=== PATIENT | male | born 1960 | race Caucasian/White ===

== ENCOUNTER 2018-04-09 11:14 | Inpatient (IN) ==
--- NOTE | 2018-04-09 11:20 | Emergency Department Note ---
Disposition Clinical Impression: Adverse reaction to drug, Agitation Disposition: Admitted As Inpatient Condition: Fair General Adult HPI - General Stated complaint: "reaction to medication?" Time Seen by Provider: 04/09/18 11:19 Nursing Notes Reviewed: Yes Vital Signs Reviewed: Yes - History of Present Illness HPI Narrative: 57-year-old male presents from work for evaluation of multiple symptoms. He was fine this morning. When he got to work, he took a single dose of his ' s prescription medication 'to help with weight loss'. He has never taken this previously and took qty one tablet this morning. 15 minutes later, he began experiencing the following symptoms:tinnitis, pruritis, restlessness, nausea, vomiting, loose stools. Patient has also been taking tramadol for years. PMH: HTN, HLD, chronic pain. Patient lives at home with his granddaughter. His was killed approximately 1 year ago; he describes her being hit on the side of the [place] by a semitruck. ROS: Pos: as above Neg: fever, chills, chest pain, dyspnea, abdominal pain, trauma, exposure to chemicals at work. No visual changes, difficulty swallowing. - Related Data Home Medications Medication Instructions Recorded Confirmed Atorvastatin Calcium [Lipitor] 20 mg PO DAILY 04/09/18 04/09/18 Lisinopril-HCTZ 10-12.5 [Prinzide 1 tab PO DAILY 04/09/18 04/09/18 10-12.5] Tramadol HCl [Ultram] 50 mg PO QID PRN 04/09/18 04/09/18 Previous Rx's Medication Instructions Recorded amLODIPine [Norvasc] 5 mg PO DAILY #30 tablet 04/12/18 Allergies Allergy/AdvReac Type Severity Reaction Status Date / Time bupropion [From Contrave] AdvReac See Verified 04/09/18 12:11 Comments naltrexone [From Contrave] AdvReac See Verified 04/09/18 12:11 Comments Physical Exam Vital Signs Reviewed General: Patient is alert, oriented. He is unable to stay still. He appears in distress. Head: atraumatic, normocephalic Eye: normal appearance, PERRL, EOMI, no scleral icterus, no conjunctival injection ENT: mucous membranes moist, normal external ear exam Neck: normal inspection, trachea midline, full ROM Chest: normal inspection, symmetric chest rise Respiratory: Good respiratory effort. Bilateral breath sounds are clear without wheezing, crackles, or rhonchi. Cardiovascular: Regular rate and rhythm. No clicks, rubs, gallops, or murmors. Normal heart sounds. Abdomen: Bowel sounds present normoactive x-4 quadrants. Abdomen is soft, nondistended, and nontender. No guarding or rebound. Musculoskeletal: Spontaneously moving all extremities. Skin: warm, dry, intact. No rash. Neuro: Alert and oriented x4. No gait ataxia. Psych: Patient's affect is appropriate for situation. Course Course Narrative: On intake vitals, patient is tachycardic and hypertensive. Patient brings a single pill of what he took: circular, purple, marked with [id number]. Pill lookup shows this to be Contrave; combination buprionone and naloxone. His symptoms appear to be cardiovascular, GI, neurologic, and psychiatric adverse reaction to this medication. There could also be a component of withdrawl from tramadol secondary to the component naloxone. Half life of buprion approximately 21 hours. Patient denies any illicit substances including bath salts. Will watch for QT prolongation, clinical psychiatric status, baseline labs including hepatic, renal, and troponin. Discussed the patient with poison control. Discussed his clinical picture and management thus far. No further recommendations. Symptomatic management at this time. Patient has required doses of penergran, ativan, halodol, geodon. He remained unable to control himself. He continued to hallucinate and would intermittently appear lucid and able to hold an appropriate conversation with insight. He self-discontinued two IVs. Unable to be still for CT scan. He was given 4mg/kg IM Ketamine and imaging was completed. Serotonin syndrome unlikely as patient has no ocular gyrus and no clonus. Neuroleptic malignant syndrome unlikely as patient is afebrile on arrival and reports no exposure to medications known for NMS. Encephalopathy unlikely as patient is lucid with short intervals of agitation and hallucinations. After 4 hours of intermittent thrashing and fighting, patient has a rectal temperature 100.6. Still low suspicion for neuroleptic malignant syndrome. He does have elevated lactic acid however, this is most likely from his thrashing. Patient admitted to the hospital for continued evaluation and monitoring. Discussed with the admitting hospitalist the patient's presentation, clinical course, and response to medication. We discussed precedex as a potential gtt medication to symptomatically manage the patient. EKG dated 04/09/18 at 14:09 interpreted as sinus tachycardia with a rate of 135. PA 134. QTC 551. Normal axis. Nonspecific ST-T changes. Previous EKG for comparison. Vital Signs Temperature 97.8 F 04/09/18 11:17 Pulse Rate 116 04/09/18 11:17 Respiratory Rate 18 04/09/18 11:17 Blood Pressure 213/154 04/09/18 11:17 O2 Sat by Pulse Oximetry 98 04/09/18 11:17 Temperature 98.5 F 04/12/18 07:57 Pulse Rate 89 04/12/18 07:57 Respiratory Rate 18 04/12/18 07:57 Blood Pressure 164/84 04/12/18 07:57 O2 Sat by Pulse Oximetry 97 04/12/18 07:57 Oxygen Delivery Oxygen Delivery Room Air Medical Decision Making - Lab Data Result diagrams: 04/12/18 05:42 04/12/18 05:42 Lab Results 04/09/18 04/09/18 04/09/18 Range/Units 12:01 12:01 12:01 WBC 10.0 (4.3-11.1) K/mcL RBC 4.97 (4.19-5.50) M/mcL Hgb 14.0 (12.9-16.9) g/dL Hct 42.3 (37.5-50.1) % MCV 85.1 (83.0-100.0) fL MCH 28.2 (28.0-33.3) pg MCHC 33.1 (31.6-35.5) g/dL RDW 12.2 (11.5-14.5) % Plt Count 327 (140-400) K/mcL MPV 9.4 (9.4-12.4) fL Immature Gran % 0.5 (0-4) % Seg Neutrophils % 61.2 % Lymphocytes % 27.6 % Monocytes % 7.9 % Eosinophils % 2.2 % Basophils % 0.6 % Neutrophils # 6.1 (1.6-8.9) K/mcL Lymphocytes # 2.8 (0.6-4.6) K/mcL Monocytes # 0.8 (0.0-1.3) K/mcL Eosinophils # 0.2 (0.0-0.6) K/mcL Basophils # 0.1 (0.0-0.2) K/mcL VBG pH (7.32-7.42) pH Units VBG pCO2 (41-51) mmHg VBG pO2 (25-50) mmHg VBG HCO3 (21-27) mEq/L Carboxyhemoglobin (0-5) % Sodium 138 (136-145) mEq/L Potassium 3.6 (3.5-5.1) mEq/L Chloride 100 (98-107) mEq/L Carbon Dioxide 25 (23-29) mEq/L BUN 15 (6-20) mg/dL Creatinine 1.08 (0.70-1.30) mg/dL Est GFR ( Amer) > 60 (> 60) Est GFR (Non-Af Amer) > 60 (> 60) BUN/Creatinine Ratio 14 (6-26) Glucose 93 (70-105) mg/dL Calculated Osmolality 287 (280-300) Lactic Acid (0.5-2.2) mmol/L Calcium 9.5 (8.6-10.3) mg/dL Total Bilirubin 0.6 (0.3-1.0) mg/dL Direct Bilirubin 0.2 (0.0-0.2) mg/dL Indirect Bilirubin 0.4 (0.0-1.2) mg/dL AST 16 (13-39) Units/L ALT 15 (7-52) Units/L Alkaline Phosphatase 140 H (34-104) Units/L Ammonia (16-53) mcmol/L Creatine Kinase 60 (30-223) Units/L Troponin I < 0.03 (< 0.04) ng/mL Serum Total Protein 7.3 (6.4-8.9) g/dL Albumin 4.2 (3.5-5.7) g/dL Globulin 3.1 (2.4-3.5) g/dL Albumin/Globulin Ratio 1.4 (1.1-2.2) TSH (0.340-5.600) mcIU/mL Urine Color (Yellow) Urine Clarity (Clear) Urine pH (5.0-8.0) pH Units Ur Specific [place] (1.010-1.025) Urine Protein (Neg-Trace) mg/dL Urine Glucose (UA) (Normal) mg/dL Urine Ketones (Negative) mg/dL Urine Blood (Negative) Urine Nitrite (Negative) Urine Bilirubin (Negative) Urine Urobilinogen (Normal) mg/dL Ur Leukocyte Esterase (Negative) Urine Microscopic RBC (0-3) per hpf Urine Microscopic WBC (0-3) per hpf Ur Squamous Epith Cells (None-Few) per lpf Urine Bacteria (None-Few) per hpf Hyaline Casts (None-Few) per lpf Salicylates < 2.5 L (15.0-30.0) mg/dL Urine Opiates Screen (Fdahqx=662) ng/mL Acetaminophen < 10 L (10-20) mcg/mL Ur Barbiturates Screen (Ojxikj=915) ng/mL Ur Phencyclidine Scrn (Cutoff=25) ng/mL Ur Amphetamines Screen (Lwkddt=9882) ng/mL U Benzodiazepines Scrn (Rjywfi=471) ng/mL Urine Cocaine Screen (Cutoff= 300) ng/mL U Marijuana (THC) Screen (Cutoff = 50) ng/mL Ur Drug Screen Interp Ethyl Alcohol < 10 (Less than 10) mg/dL 04/09/18 04/09/18 04/09/18 Range/Units 12:13 12:13 14:08 WBC (4.3-11.1) K/mcL RBC (4.19-5.50) M/mcL Hgb (12.9-16.9) g/dL Hct (37.5-50.1) % MCV (83.0-100.0) fL MCH (28.0-33.3) pg MCHC (31.6-35.5) g/dL RDW (11.5-14.5) % Plt Count (140-400) K/mcL MPV (9.4-12.4) fL Immature Gran % (0-4) % Seg Neutrophils % % Lymphocytes % % Monocytes % % Eosinophils % % Basophils % % Neutrophils # (1.6-8.9) K/mcL Lymphocytes # (0.6-4.6) K/mcL Monocytes # (0.0-1.3) K/mcL Eosinophils # (0.0-0.6) K/mcL Basophils # (0.0-0.2) K/mcL VBG pH 7.50 H (7.32-7.42) pH Units VBG pCO2 32 L (41-51) mmHg VBG pO2 152 H (25-50) mmHg VBG HCO3 25 (21-27) mEq/L Carboxyhemoglobin 6.5 H (0-5) % Sodium (136-145) mEq/L Potassium (3.5-5.1) mEq/L Chloride (98-107) mEq/L Carbon Dioxide (23-29) mEq/L BUN (6-20) mg/dL Creatinine (0.70-1.30) mg/dL Est GFR ( Amer) (> 60) Est GFR (Non-Af Amer) (> 60) BUN/Creatinine Ratio (6-26) Glucose (70-105) mg/dL Calculated Osmolality (280-300) Lactic Acid (0.5-2.2) mmol/L Calcium (8.6-10.3) mg/dL Total Bilirubin (0.3-1.0) mg/dL Direct Bilirubin (0.0-0.2) mg/dL Indirect Bilirubin (0.0-1.2) mg/dL AST (13-39) Units/L ALT (7-52) Units/L Alkaline Phosphatase (34-104) Units/L Ammonia (16-53) mcmol/L Creatine Kinase (30-223) Units/L Troponin I (< 0.04) ng/mL Serum Total Protein (6.4-8.9) g/dL Albumin (3.5-5.7) g/dL Globulin (2.4-3.5) g/dL Albumin/Globulin Ratio (1.1-2.2) TSH 2.025 (0.340-5.600) mcIU/mL Urine Color (Yellow) Urine Clarity (Clear) Urine pH (5.0-8.0) pH Units Ur Specific [place] (1.010-1.025) Urine Protein (Neg-Trace) mg/dL Urine Glucose (UA) (Normal) mg/dL Urine Ketones (Negative) mg/dL Urine Blood (Negative) Urine Nitrite (Negative) Urine Bilirubin (Negative) Urine Urobilinogen (Normal) mg/dL Ur Leukocyte Esterase (Negative) Urine Microscopic RBC (0-3) per hpf Urine Microscopic WBC (0-3) per hpf Ur Squamous Epith Cells (None-Few) per lpf Urine Bacteria (None-Few) per hpf Hyaline Casts (None-Few) per lpf Salicylates (15.0-30.0) mg/dL Urine Opiates Screen (Sevcsf=592) ng/mL Acetaminophen (10-20) mcg/mL Ur Barbiturates Screen (Zybahq=950) ng/mL Ur Phencyclidine Scrn (Cutoff=25) ng/mL Ur Amphetamines Screen (Xcoubc=4200) ng/mL U Benzodiazepines Scrn (Qekjhe=356) ng/mL Urine Cocaine Screen (Cutoff= 300) ng/mL U Marijuana (THC) Screen (Cutoff = 50) ng/mL Ur Drug Screen Interp Ethyl Alcohol (Less than 10) mg/dL 04/09/18 04/09/18 04/09/18 Range/Units 14:08 14:44 14:45 WBC (4.3-11.1) K/mcL RBC (4.19-5.50) M/mcL Hgb (12.9-16.9) g/dL Hct (37.5-50.1) % MCV (83.0-100.0) fL MCH (28.0-33.3) pg MCHC (31.6-35.5) g/dL RDW (11.5-14.5) % Plt Count (140-400) K/mcL MPV (9.4-12.4) fL Immature Gran % (0-4) % Seg Neutrophils % % Lymphocytes % % Monocytes % % Eosinophils % % Basophils % % Neutrophils # (1.6-8.9) K/mcL Lymphocytes # (0.6-4.6) K/mcL Monocytes # (0.0-1.3) K/mcL Eosinophils # (0.0-0.6) K/mcL Basophils # (0.0-0.2) K/mcL VBG pH (7.32-7.42) pH Units VBG pCO2 (41-51) mmHg VBG pO2 (25-50) mmHg VBG HCO3 (21-27) mEq/L Carboxyhemoglobin (0-5) % Sodium (136-145) mEq/L Potassium (3.5-5.1) mEq/L Chloride (98-107) mEq/L Carbon Dioxide (23-29) mEq/L BUN (6-20) mg/dL Creatinine (0.70-1.30) mg/dL Est GFR ( Amer) (> 60) Est GFR (Non-Af Amer) (> 60) BUN/Creatinine Ratio (6-26) Glucose (70-105) mg/dL Calculated Osmolality (280-300) Lactic Acid (0.5-2.2) mmol/L Calcium (8.6-10.3) mg/dL Total Bilirubin (0.3-1.0) mg/dL Direct Bilirubin (0.0-0.2) mg/dL Indirect Bilirubin (0.0-1.2) mg/dL AST (13-39) Units/L ALT (7-52) Units/L Alkaline Phosphatase (34-104) Units/L Ammonia 68 H (16-53) mcmol/L Creatine Kinase (30-223) Units/L Troponin I (< 0.04) ng/mL Serum Total Protein (6.4-8.9) g/dL Albumin (3.5-5.7) g/dL Globulin (2.4-3.5) g/dL Albumin/Globulin Ratio (1.1-2.2) TSH (0.340-5.600) mcIU/mL Urine Color Yellow (Yellow) Urine Clarity Clear (Clear) Urine pH 5.0 (5.0-8.0) pH Units Ur Specific [place] 1.027 H (1.010-1.025) Urine Protein Negative (Neg-Trace) mg/dL Urine Glucose (UA) Normal (Normal) mg/dL Urine Ketones 15 H (Negative) mg/dL Urine Blood Small H (Negative) Urine Nitrite Negative (Negative) Urine Bilirubin Negative (Negative) Urine Urobilinogen Normal (Normal) mg/dL Ur Leukocyte Esterase Negative (Negative) Urine Microscopic RBC 5-15 H (0-3) per hpf Urine Microscopic WBC 0-3 (0-3) per hpf Ur Squamous Epith Cells Many H (None-Few) per lpf Urine Bacteria None Seen (None-Few) per hpf Hyaline Casts None Seen (None-Few) per lpf Salicylates (15.0-30.0) mg/dL Urine Opiates Screen Negative (Ktidsk=621) ng/mL Acetaminophen (10-20) mcg/mL Ur Barbiturates Screen Negative (Kywylf=793) ng/mL Ur Phencyclidine Scrn Negative (Cutoff=25) ng/mL Ur Amphetamines Screen Negative (Aeabzx=1531) ng/mL U Benzodiazepines Scrn Positive H (Ojouzx=946) ng/mL Urine Cocaine Screen Negative (Cutoff= 300) ng/mL U Marijuana (THC) Screen Negative (Cutoff = 50) ng/mL Ur Drug Screen Interp See Below Ethyl Alcohol (Less than 10) mg/dL 04/09/18 Range/Units 16:27 WBC (4.3-11.1) K/mcL RBC (4.19-5.50) M/mcL Hgb (12.9-16.9) g/dL Hct (37.5-50.1) % MCV (83.0-100.0) fL MCH (28.0-33.3) pg MCHC (31.6-35.5) g/dL RDW (11.5-14.5) % Plt Count (140-400) K/mcL MPV (9.4-12.4) fL Immature Gran % (0-4) % Seg Neutrophils % % Lymphocytes % % Monocytes % % Eosinophils % % Basophils % % Neutrophils # (1.6-8.9) K/mcL Lymphocytes # (0.6-4.6) K/mcL Monocytes # (0.0-1.3) K/mcL Eosinophils # (0.0-0.6) K/mcL Basophils # (0.0-0.2) K/mcL VBG pH (7.32-7.42) pH Units VBG pCO2 (41-51) mmHg VBG pO2 (25-50) mmHg VBG HCO3 (21-27) mEq/L Carboxyhemoglobin (0-5) % Sodium (136-145) mEq/L Potassium (3.5-5.1) mEq/L Chloride (98-107) mEq/L Carbon Dioxide (23-29) mEq/L BUN (6-20) mg/dL Creatinine (0.70-1.30) mg/dL Est GFR ( Amer) (> 60) Est GFR (Non-Af Amer) (> 60) BUN/Creatinine Ratio (6-26) Glucose (70-105) mg/dL Calculated Osmolality (280-300) Lactic Acid 4.9 H* (0.5-2.2) mmol/L Calcium (8.6-10.3) mg/dL Total Bilirubin (0.3-1.0) mg/dL Direct Bilirubin (0.0-0.2) mg/dL Indirect Bilirubin (0.0-1.2) mg/dL AST (13-39) Units/L ALT (7-52) Units/L Alkaline Phosphatase (34-104) Units/L Ammonia (16-53) mcmol/L Creatine Kinase (30-223) Units/L Troponin I (< 0.04) ng/mL Serum Total Protein (6.4-8.9) g/dL Albumin (3.5-5.7) g/dL Globulin (2.4-3.5) g/dL Albumin/Globulin Ratio (1.1-2.2) TSH (0.340-5.600) mcIU/mL Urine Color (Yellow) Urine Clarity (Clear) Urine pH (5.0-8.0) pH Units Ur Specific [place] (1.010-1.025) Urine Protein (Neg-Trace) mg/dL Urine Glucose (UA) (Normal) mg/dL Urine Ketones (Negative) mg/dL Urine Blood (Negative) Urine Nitrite (Negative) Urine Bilirubin (Negative) Urine Urobilinogen (Normal) mg/dL Ur Leukocyte Esterase (Negative) Urine Microscopic RBC (0-3) per hpf Urine Microscopic WBC (0-3) per hpf Ur Squamous Epith Cells (None-Few) per lpf Urine Bacteria (None-Few) per hpf Hyaline Casts (None-Few) per lpf Salicylates (15.0-30.0) mg/dL Urine Opiates Screen (Cltbij=421) ng/mL Acetaminophen (10-20) mcg/mL Ur Barbiturates Screen (Ijxdig=731) ng/mL Ur Phencyclidine Scrn (Cutoff=25) ng/mL Ur Amphetamines Screen (Xgmnor=5030) ng/mL U Benzodiazepines Scrn (Fdyuor=402) ng/mL Urine Cocaine Screen (Cutoff= 300) ng/mL U Marijuana (THC) Screen (Cutoff = 50) ng/mL Ur Drug Screen Interp Ethyl Alcohol (Less than 10) mg/dL Attestation Statement - Attestation Attestation: I, Maurice Peters DO, examined this patient [id number] and my medical decision-making was reviewed with Dr. Artur Adhikari, Resident Physician. I agree with the documented findings, disposition and treatment plan as described except to the extent set forth below. Please see my progress notes for details.
[2018-04-09] MEDS ORDERED: *HR* LORazepam 2 MG/ML VIAL IVP ONE ×5 (11:32→18:29)
[2018-04-09] MEDS ORDERED: *HR* Promethazine 25 MG/ML VIAL IVP ONE (11:33)
[2018-04-09] MEDS ORDERED: *HR* LORazepam 2 MG/ML VIAL IM ONE (11:41)
--- NOTE | 2018-04-09 11:44 | Emergency Department Note ---
Disposition Clinical Impression: Adverse reaction to drug, Agitation Disposition: Admitted As Inpatient Condition: Fair Time of Disposition: 18:09 General Adult HPI - General Chief complaint: ED Allergic Reaction Stated complaint: "reaction to medication?" Time Seen by Provider: 04/09/18 11:19 - History of Present Illness Pain Scale: 10 - Related Data Home Medications Medication Instructions Recorded Confirmed Atorvastatin Calcium [Lipitor] 20 mg PO DAILY 04/09/18 04/09/18 Lisinopril-HCTZ 10-12.5 [Prinzide 1 tab PO DAILY 04/09/18 04/09/18 10-12.5] Tramadol HCl [Ultram] 50 mg PO QID PRN 04/09/18 04/09/18 Allergies Allergy/AdvReac Type Severity Reaction Status Date / Time bupropion [From Contrave] AdvReac See Verified 04/09/18 12:11 Comments naltrexone [From Contrave] AdvReac See Verified 04/09/18 12:11 Comments Course Vital Signs Temperature 97.8 F 04/09/18 11:17 Pulse Rate 116 04/09/18 11:17 Respiratory Rate 18 04/09/18 11:17 Blood Pressure 213/154 04/09/18 11:17 O2 Sat by Pulse Oximetry 98 04/09/18 11:17 Temperature 100.6 F H 04/09/18 16:57 Pulse Rate 140 04/09/18 17:36 Respiratory Rate 16 04/09/18 17:36 Blood Pressure 109/43 04/09/18 17:36 O2 Sat by Pulse Oximetry 97 04/09/18 17:36 Oxygen Delivery Oxygen Delivery Room Air Medical Decision Making - Lab Data Result diagrams: 04/09/18 12:01 04/09/18 12:01 Lab Results 04/09/18 04/09/18 04/09/18 Range/Units 12:01 12:01 12:01 WBC 10.0 (4.3-11.1) K/mcL RBC 4.97 (4.19-5.50) M/mcL Hgb 14.0 (12.9-16.9) g/dL Hct 42.3 (37.5-50.1) % MCV 85.1 (83.0-100.0) fL MCH 28.2 (28.0-33.3) pg MCHC 33.1 (31.6-35.5) g/dL RDW 12.2 (11.5-14.5) % Plt Count 327 (140-400) K/mcL MPV 9.4 (9.4-12.4) fL Immature Gran % 0.5 (0-4) % Seg Neutrophils % 61.2 % Lymphocytes % 27.6 % Monocytes % 7.9 % Eosinophils % 2.2 % Basophils % 0.6 % Neutrophils # 6.1 (1.6-8.9) K/mcL Lymphocytes # 2.8 (0.6-4.6) K/mcL Monocytes # 0.8 (0.0-1.3) K/mcL Eosinophils # 0.2 (0.0-0.6) K/mcL Basophils # 0.1 (0.0-0.2) K/mcL VBG pH (7.32-7.42) pH Units VBG pCO2 (41-51) mmHg VBG pO2 (25-50) mmHg VBG HCO3 (21-27) mEq/L Carboxyhemoglobin (0-5) % Sodium 138 (136-145) mEq/L Potassium 3.6 (3.5-5.1) mEq/L Chloride 100 (98-107) mEq/L Carbon Dioxide 25 (23-29) mEq/L BUN 15 (6-20) mg/dL Creatinine 1.08 (0.70-1.30) mg/dL Est GFR ( Amer) > 60 (> 60) Est GFR (Non-Af Amer) > 60 (> 60) BUN/Creatinine Ratio 14 (6-26) Glucose 93 (70-105) mg/dL Calculated Osmolality 287 (280-300) Lactic Acid (0.5-2.2) mmol/L Calcium 9.5 (8.6-10.3) mg/dL Total Bilirubin 0.6 (0.3-1.0) mg/dL Direct Bilirubin 0.2 (0.0-0.2) mg/dL Indirect Bilirubin 0.4 (0.0-1.2) mg/dL AST 16 (13-39) Units/L ALT 15 (7-52) Units/L Alkaline Phosphatase 140 H (34-104) Units/L Ammonia (16-53) mcmol/L Creatine Kinase 60 (30-223) Units/L Troponin I < 0.03 (< 0.04) ng/mL Serum Total Protein 7.3 (6.4-8.9) g/dL Albumin 4.2 (3.5-5.7) g/dL Globulin 3.1 (2.4-3.5) g/dL Albumin/Globulin Ratio 1.4 (1.1-2.2) TSH (0.340-5.600) mcIU/mL Urine Color (Yellow) Urine Clarity (Clear) Urine pH (5.0-8.0) pH Units Ur Specific Osborn (1.010-1.025) Urine Protein (Neg-Trace) mg/dL Urine Glucose (UA) (Normal) mg/dL Urine Ketones (Negative) mg/dL Urine Blood (Negative) Urine Nitrite (Negative) Urine Bilirubin (Negative) Urine Urobilinogen (Normal) mg/dL Ur Leukocyte Esterase (Negative) Urine Microscopic RBC (0-3) per hpf Urine Microscopic WBC (0-3) per hpf Ur Squamous Epith Cells (None-Few) per lpf Urine Bacteria (None-Few) per hpf Hyaline Casts (None-Few) per lpf Salicylates < 2.5 L (15.0-30.0) mg/dL Urine Opiates Screen (Btgojx=488) ng/mL Acetaminophen < 10 L (10-20) mcg/mL Ur Barbiturates Screen (Qjdkzj=048) ng/mL Ur Phencyclidine Scrn (Cutoff=25) ng/mL Ur Amphetamines Screen (Qljubo=9746) ng/mL U Benzodiazepines Scrn (Rebjkt=304) ng/mL Urine Cocaine Screen (Cutoff= 300) ng/mL U Marijuana (THC) Screen (Cutoff = 50) ng/mL Ur Drug Screen Interp Ethyl Alcohol < 10 (Less than 10) mg/dL 04/09/18 04/09/18 04/09/18 Range/Units 12:13 12:13 14:08 WBC (4.3-11.1) K/mcL RBC (4.19-5.50) M/mcL Hgb (12.9-16.9) g/dL Hct (37.5-50.1) % MCV (83.0-100.0) fL MCH (28.0-33.3) pg MCHC (31.6-35.5) g/dL RDW (11.5-14.5) % Plt Count (140-400) K/mcL MPV (9.4-12.4) fL Immature Gran % (0-4) % Seg Neutrophils % % Lymphocytes % % Monocytes % % Eosinophils % % Basophils % % Neutrophils # (1.6-8.9) K/mcL Lymphocytes # (0.6-4.6) K/mcL Monocytes # (0.0-1.3) K/mcL Eosinophils # (0.0-0.6) K/mcL Basophils # (0.0-0.2) K/mcL VBG pH 7.50 H (7.32-7.42) pH Units VBG pCO2 32 L (41-51) mmHg VBG pO2 152 H (25-50) mmHg VBG HCO3 25 (21-27) mEq/L Carboxyhemoglobin 6.5 H (0-5) % Sodium (136-145) mEq/L Potassium (3.5-5.1) mEq/L Chloride (98-107) mEq/L Carbon Dioxide (23-29) mEq/L BUN (6-20) mg/dL Creatinine (0.70-1.30) mg/dL Est GFR ( Amer) (> 60) Est GFR (Non-Af Amer) (> 60) BUN/Creatinine Ratio (6-26) Glucose (70-105) mg/dL Calculated Osmolality (280-300) Lactic Acid (0.5-2.2) mmol/L Calcium (8.6-10.3) mg/dL Total Bilirubin (0.3-1.0) mg/dL Direct Bilirubin (0.0-0.2) mg/dL Indirect Bilirubin (0.0-1.2) mg/dL AST (13-39) Units/L ALT (7-52) Units/L Alkaline Phosphatase (34-104) Units/L Ammonia (16-53) mcmol/L Creatine Kinase (30-223) Units/L Troponin I (< 0.04) ng/mL Serum Total Protein (6.4-8.9) g/dL Albumin (3.5-5.7) g/dL Globulin (2.4-3.5) g/dL Albumin/Globulin Ratio (1.1-2.2) TSH 2.025 (0.340-5.600) mcIU/mL Urine Color (Yellow) Urine Clarity (Clear) Urine pH (5.0-8.0) pH Units Ur Specific Osborn (1.010-1.025) Urine Protein (Neg-Trace) mg/dL Urine Glucose (UA) (Normal) mg/dL Urine Ketones (Negative) mg/dL Urine Blood (Negative) Urine Nitrite (Negative) Urine Bilirubin (Negative) Urine Urobilinogen (Normal) mg/dL Ur Leukocyte Esterase (Negative) Urine Microscopic RBC (0-3) per hpf Urine Microscopic WBC (0-3) per hpf Ur Squamous Epith Cells (None-Few) per lpf Urine Bacteria (None-Few) per hpf Hyaline Casts (None-Few) per lpf Salicylates (15.0-30.0) mg/dL Urine Opiates Screen (Ollttm=624) ng/mL Acetaminophen (10-20) mcg/mL Ur Barbiturates Screen (Afolcl=686) ng/mL Ur Phencyclidine Scrn (Cutoff=25) ng/mL Ur Amphetamines Screen (Unpcoj=9097) ng/mL U Benzodiazepines Scrn (Mfwybx=711) ng/mL Urine Cocaine Screen (Cutoff= 300) ng/mL U Marijuana (THC) Screen (Cutoff = 50) ng/mL Ur Drug Screen Interp Ethyl Alcohol (Less than 10) mg/dL 04/09/18 04/09/18 04/09/18 Range/Units 14:08 14:44 14:45 WBC (4.3-11.1) K/mcL RBC (4.19-5.50) M/mcL Hgb (12.9-16.9) g/dL Hct (37.5-50.1) % MCV (83.0-100.0) fL MCH (28.0-33.3) pg MCHC (31.6-35.5) g/dL RDW (11.5-14.5) % Plt Count (140-400) K/mcL MPV (9.4-12.4) fL Immature Gran % (0-4) % Seg Neutrophils % % Lymphocytes % % Monocytes % % Eosinophils % % Basophils % % Neutrophils # (1.6-8.9) K/mcL Lymphocytes # (0.6-4.6) K/mcL Monocytes # (0.0-1.3) K/mcL Eosinophils # (0.0-0.6) K/mcL Basophils # (0.0-0.2) K/mcL VBG pH (7.32-7.42) pH Units VBG pCO2 (41-51) mmHg VBG pO2 (25-50) mmHg VBG HCO3 (21-27) mEq/L Carboxyhemoglobin (0-5) % Sodium (136-145) mEq/L Potassium (3.5-5.1) mEq/L Chloride (98-107) mEq/L Carbon Dioxide (23-29) mEq/L BUN (6-20) mg/dL Creatinine (0.70-1.30) mg/dL Est GFR ( Amer) (> 60) Est GFR (Non-Af Amer) (> 60) BUN/Creatinine Ratio (6-26) Glucose (70-105) mg/dL Calculated Osmolality (280-300) Lactic Acid (0.5-2.2) mmol/L Calcium (8.6-10.3) mg/dL Total Bilirubin (0.3-1.0) mg/dL Direct Bilirubin (0.0-0.2) mg/dL Indirect Bilirubin (0.0-1.2) mg/dL AST (13-39) Units/L ALT (7-52) Units/L Alkaline Phosphatase (34-104) Units/L Ammonia 68 H (16-53) mcmol/L Creatine Kinase (30-223) Units/L Troponin I (< 0.04) ng/mL Serum Total Protein (6.4-8.9) g/dL Albumin (3.5-5.7) g/dL Globulin (2.4-3.5) g/dL Albumin/Globulin Ratio (1.1-2.2) TSH (0.340-5.600) mcIU/mL Urine Color Yellow (Yellow) Urine Clarity Clear (Clear) Urine pH 5.0 (5.0-8.0) pH Units Ur Specific Osborn 1.027 H (1.010-1.025) Urine Protein Negative (Neg-Trace) mg/dL Urine Glucose (UA) Normal (Normal) mg/dL Urine Ketones 15 H (Negative) mg/dL Urine Blood Small H (Negative) Urine Nitrite Negative (Negative) Urine Bilirubin Negative (Negative) Urine Urobilinogen Normal (Normal) mg/dL Ur Leukocyte Esterase Negative (Negative) Urine Microscopic RBC 5-15 H (0-3) per hpf Urine Microscopic WBC 0-3 (0-3) per hpf Ur Squamous Epith Cells Many H (None-Few) per lpf Urine Bacteria None Seen (None-Few) per hpf Hyaline Casts None Seen (None-Few) per lpf Salicylates (15.0-30.0) mg/dL Urine Opiates Screen Negative (Gfnisl=932) ng/mL Acetaminophen (10-20) mcg/mL Ur Barbiturates Screen Negative (Zdwvjj=181) ng/mL Ur Phencyclidine Scrn Negative (Cutoff=25) ng/mL Ur Amphetamines Screen Negative (Gfhudb=1365) ng/mL U Benzodiazepines Scrn Positive H (Uwtedl=914) ng/mL Urine Cocaine Screen Negative (Cutoff= 300) ng/mL U Marijuana (THC) Screen Negative (Cutoff = 50) ng/mL Ur Drug Screen Interp See Below Ethyl Alcohol (Less than 10) mg/dL 04/09/18 04/09/18 04/09/18 Range/Units 16:27 17:11 17:35 WBC (4.3-11.1) K/mcL RBC (4.19-5.50) M/mcL Hgb (12.9-16.9) g/dL Hct (37.5-50.1) % MCV (83.0-100.0) fL MCH (28.0-33.3) pg MCHC (31.6-35.5) g/dL RDW (11.5-14.5) % Plt Count (140-400) K/mcL MPV (9.4-12.4) fL Immature Gran % (0-4) % Seg Neutrophils % % Lymphocytes % % Monocytes % % Eosinophils % % Basophils % % Neutrophils # (1.6-8.9) K/mcL Lymphocytes # (0.6-4.6) K/mcL Monocytes # (0.0-1.3) K/mcL Eosinophils # (0.0-0.6) K/mcL Basophils # (0.0-0.2) K/mcL VBG pH 7.48 H (7.32-7.42) pH Units VBG pCO2 30 L (41-51) mmHg VBG pO2 146 H (25-50) mmHg VBG HCO3 22 (21-27) mEq/L Carboxyhemoglobin (0-5) % Sodium (136-145) mEq/L Potassium (3.5-5.1) mEq/L Chloride (98-107) mEq/L Carbon Dioxide (23-29) mEq/L BUN (6-20) mg/dL Creatinine (0.70-1.30) mg/dL Est GFR ( Amer) (> 60) Est GFR (Non-Af Amer) (> 60) BUN/Creatinine Ratio (6-26) Glucose (70-105) mg/dL Calculated Osmolality (280-300) Lactic Acid 4.9 H* (0.5-2.2) mmol/L Calcium (8.6-10.3) mg/dL Total Bilirubin (0.3-1.0) mg/dL Direct Bilirubin (0.0-0.2) mg/dL Indirect Bilirubin (0.0-1.2) mg/dL AST (13-39) Units/L ALT (7-52) Units/L Alkaline Phosphatase (34-104) Units/L Ammonia (16-53) mcmol/L Creatine Kinase 440 H (30-223) Units/L Troponin I (< 0.04) ng/mL Serum Total Protein (6.4-8.9) g/dL Albumin (3.5-5.7) g/dL Globulin (2.4-3.5) g/dL Albumin/Globulin Ratio (1.1-2.2) TSH (0.340-5.600) mcIU/mL Urine Color (Yellow) Urine Clarity (Clear) Urine pH (5.0-8.0) pH Units Ur Specific Osborn (1.010-1.025) Urine Protein (Neg-Trace) mg/dL Urine Glucose (UA) (Normal) mg/dL Urine Ketones (Negative) mg/dL Urine Blood (Negative) Urine Nitrite (Negative) Urine Bilirubin (Negative) Urine Urobilinogen (Normal) mg/dL Ur Leukocyte Esterase (Negative) Urine Microscopic RBC (0-3) per hpf Urine Microscopic WBC (0-3) per hpf Ur Squamous Epith Cells (None-Few) per lpf Urine Bacteria (None-Few) per hpf Hyaline Casts (None-Few) per lpf Salicylates (15.0-30.0) mg/dL Urine Opiates Screen (Ymlsnn=590) ng/mL Acetaminophen (10-20) mcg/mL Ur Barbiturates Screen (Zbpnaz=377) ng/mL Ur Phencyclidine Scrn (Cutoff=25) ng/mL Ur Amphetamines Screen (Glyocj=0267) ng/mL U Benzodiazepines Scrn (Tvqvyc=571) ng/mL Urine Cocaine Screen (Cutoff= 300) ng/mL U Marijuana (THC) Screen (Cutoff = 50) ng/mL Ur Drug Screen Interp Ethyl Alcohol (Less than 10) mg/dL Critical Care Time Critical Care Time: Yes Total Critical Care Time: 45 Attestation: Critical care performed: Time is exclusive of separately billable procedures. Time includes: direct patient care, patient reassessment, coordination of patient care, interpretation of data (laboratory data, radiology data, and respiratory data), review of patient's medical records, medical consultation and documentation of patient care. Procedures included in critical care time: Procedures excluded from critical care time: Attestation Statement - Attestation Attestation: I, Maurice Peters DO, examined this patient [id number] and my medical decision-making was reviewed with Dr. Artur Adhikari, Resident Physician. I agree with the documented findings, disposition and treatment plan as described except to the extent set forth below. Please see my progress notes for details. 57-year-old male presents emergency room with what appears to be an adverse reaction to medication. Patient does have a history of hypertension hyperlipidemia. He took one of his 's medication at home for obesity. The medication appears to be Wellbutrin/naltrexone. Approximately 2 hours after the ingestion the patient started to have tremors pain burning sensation in his legs tachycardia and severe discomfort along with ringing in his ears. Patient brought the pill into the emergency room with him. He said that he only took one tablet. Based on the presentation the symptoms this appears to be an adverse reaction to the medication. Patient's vital signs do show hypertension and tachycardia initially. 2 mg of intramuscular Ativan will be given to help ora some of the symptoms at this time to allow us to get an IV and start fluids. The half-life of the medication as anywhere from 14-30 hours. Patient otherwise has no trauma no injuries. He is currently denying chest pain shortness of breath headache vision changes. He does have severe intermittent nausea vomiting and diarrhea. Patient does chronically take tramadol so this could be a reaction secondary to the naltrexone symptomatic control will be appreciated fluid hydration will be started. Poison Control Center will be contacted. We reviewed the management of adverse reaction to the medication and it appears that QTC prolongation along with cardiac arrhythmia and the other describes symptoms are within the realm of medication reaction this time. Symptomatically controlled to be completed. Heart is regular but tachycardic lungs are clear abdomen is soft nontender nondistended. Legs appear to be symmetrical no swelling or rash or lesions with the patient has significant pain. There is no point tenderness or pain patient describing neurologic like discomfort in the lower extremities with a burning sensation and restless leg- like presentation. No acute neurologic deficits are noted at this time. All the symptoms seem to have started after taking the medication at the appropriate time frame for the medication to be absorbed in the body. We will continue to monitor here until symptomatic control is established and labs are reviewed and resulted. CBC chemistry liver function testing urinalysis urine drug screen along with EKG and chest x-ray will be collected. Troponin also be added on. Symptomatically controlled to be established. See detailed recommendation the physical exam, medical intervention, medical decision-making and disposition in the resident physician's note. No initial critical care provider the patient's treatment course. Patient will most likely require admission for observation until medication is cleared and the symptoms have controlled 1245 Patient pulled out his initial IV. He is given 2 mg of intramuscular Ativan. 5 mg of IV Valium has been given at this time. Patient is still trying to get up out of bed and is starting to have some other neurologic related symptoms including restlessness and some potential hallucinations he is reaching out for things in the room that were not better. Patient will be given Haldol this time and CT imaging the head will be added on. The labs appear to be relatively unremarkable this time. His VBG shows alkalosis with a pH of 7.50. Continuation of fluids will be started as well. Restraints will be applied as the patient does not accommodate treatment with the Haldol being provided. Disposition will be admission for medication reaction. Other acute etiology could contribute to the presentation are being reviewed. Patient is still mentating appropriately. alert oriented and answering questions appropriately. 1415 Patient does not show any acute signs of encephalopathy or encephalitis at this point. His vital signs remain stable. Patient was provided with Haldol and Geodon without any significant symptomatic relief. Patient is still agitated. He answers questions appropriately throughout the entire visitation and knows that he is acting inappropriately but he cannot stop himself from doing so. Patient will be provided with IM ketamine and a dissociative dose to get the CT imaging of his head EKG and urine collection completed and then will determine disposition. 1600 Patient is been in restraints for his safety as well as a staff considering does have outbursts and agitation along with inability to control his movements at this time. Patient is still alert and answers questions appropriately. His CT scan and labs are completely unremarkable except for slightly elevated ammonia. Repeat dose of Haldol as well as Ativan have been given. He has not affected the patient's symptoms. He denies any use of anything as far Street drugs or possible spice or bath salts. Repeat dose of Geodon will be given intramuscular at this time and then patient will be admitted. 1730 Patient has a moderately resolved VBG with a pH of 7.4 with no acute changes and the oxygenation. The CPK was repeated now is 440 most likely secondary to the patient's thrashing and agitation will here. Lactic acid also was 4.9. Unknown etiology to the patient's symptoms at this point is still undifferentiated. Admission to be completed. Patient left our emergency department in stable medical condition with stable no acute known etiology to the presenting symptoms outside of concern for medication reaction.
[2018-04-09 12:14] LABS: Basophils # 0.1 K/mcL (0.0-0.2); Basophils % 0.6 %; Eosinophils # 0.2 K/mcL (0.0-0.6); Eosinophils % 2.2 %; Hematocrit 42.3 % (37.5-50.1); Immature Granulocytes % 0.5 % (0-4); Lymphocytes # 2.8 K/mcL (0.6-4.6); Lymphocytes % 27.6 %; Mean Corpuscular HGB Conc 33.1 g/dL (31.6-35.5); Mean Corpuscular Hemoglobin 28.2 pg (28.0-33.3); Mean Corpuscular Volume 85.1 fL (83.0-100.0); Mean Platelet Volume 9.4 fL (9.4-12.4); Monocytes # 0.8 K/mcL (0.0-1.3); Monocytes % 7.9 %; Neutrophils # 6.1 K/mcL (1.6-8.9); Platelet Count 327 K/mcL (140-400); Red Blood Count 4.97 M/mcL (4.19-5.50); Red Cell Distribution Width 12.2 % (11.5-14.5); Segmented Neutrophils % 61.2 %
[2018-04-09 12:16] LABS: VBG HCO3 25 mEq/L (21-27); VBG PCO2 32 mmHg (41-51); VBG PO2 152 mmHg (25-50)
[2018-04-09] MEDS ORDERED: diazePAM 10 MG/2 ML SYRINGE IM ONE (12:26)
[2018-04-09 12:39] LABS: Acetaminophen < 10 mcg/mL (10-20); Alanine Aminotransferase 15 Units/L (7-52); Albumin 4.2 g/dL (3.5-5.7); Albumin/Globulin Ratio 1.4 (1.1-2.2); Alkaline Phosphatase 140 Units/L (34-104); Aspartate Amino Transferase 16 Units/L (13-39); BUN/Creatinine Ratio 14 (6-26); Bilirubin,Direct 0.2 mg/dL (0.0-0.2); Bilirubin,Indirect 0.4 mg/dL (0.0-1.2); Bilirubin,Total 0.6 mg/dL (0.3-1.0); Blood Urea Nitrogen 15 mg/dL (6-20); Calcium 9.5 mg/dL (8.6-10.3); Carbon Dioxide 25 mEq/L (23-29); Chloride 100 mEq/L (98-107); Ethanol < 10 mg/dL (Less than 10); Globulin 3.1 g/dL (2.4-3.5); Glucose 93 mg/dL (70-105); Osmolality,Calculated 287 (280-300); Potassium 3.6 mEq/L (3.5-5.1); Salicylate < 2.5 mg/dL (15.0-30.0); Sodium 138 mEq/L (136-145); Total Protein 7.3 g/dL (6.4-8.9); eGFR For Non-African Americans > 60 (> 60)
[2018-04-09] MEDS: 0.9 % Sodium Chloride 1,000 ML IVC SCH ×3 (12:49→22:31)
[2018-04-09] MEDS ORDERED: Haloperidol Lactate 5 MG/ML VIAL IVP ONE ×2 (12:55→15:43)
[2018-04-09] MEDS ORDERED: 0.9 % Sodium Chloride 1,000 ML IVC ONE ×2 (12:56→16:56)
[2018-04-09] MEDS ORDERED: Haloperidol Lactate 5 MG/ML VIAL IM ONE (12:58)
[2018-04-09] MEDS ORDERED: Ziprasidone injection 20 MG/ML VIAL IM ONE ×2 (13:22→16:06)
[2018-04-09] MEDS ORDERED: Ketamine *HR* 500 MG/10 ML MDV IM STA (13:51)
[2018-04-09 14:53] LABS: Bilirubin,Urine Negative (Negative); Blood,Urine Small (Negative); Clarity,Urine Clear (Clear); Color,Urine Yellow (Yellow); Glucose,Urine (UA) Normal (Normal); Ketones,Urine 15 mg/dL (Negative); Leukocyte Esterase,Urine Negative (Negative); Nitrite,Urine Negative (Negative); Protein,Urine Negative (Neg-Trace); Specific Gravity,Urine 1.027 (1.010-1.025); Urobilinogen,Urine Normal (Normal)
[2018-04-09 14:55] LABS: Bacteria,Urine None Seen per hpf (None-Few); Hyaline Casts,Urine None Seen per lpf (None-Few); Squamous Epithelial Cell,Urine Many per lpf (None-Few); WBC,Urine 0-3 per hpf (0-3)
[2018-04-09 15:03] LABS: Amphetamine Screen,Urine Negative ng/mL (Cutoff=1000); Barbiturate Screen,Urine Negative ng/mL (Cutoff=200); Benzodiazepines Screen,Urine Positive ng/mL (Cutoff=200); Cannabinoid Screen,Urine Negative ng/mL (Cutoff = 50); Cocaine Screen,Urine Negative ng/mL (Cutoff= 300); Opiate Screen,Urine Negative ng/mL (Cutoff=300); Phencyclidine Screen,Urine Negative ng/mL (Cutoff=25)
[2018-04-09] MEDS ORDERED: Lactulose Oral Soln 20 GM/30 ML UDC PO ONE (15:06)
[2018-04-09] MEDS ORDERED: Cyprohepatdine 4 MG TABLET PO STA (15:07)
[2018-04-09 15:08] LABS: Creatine Kinase 60 Units/L (30-223)
[2018-04-09 17:39] LABS: VBG HCO3 22 mEq/L (21-27); VBG PCO2 30 mmHg (41-51); VBG PH 7.48 pH Units (7.32-7.42); VBG PO2 146 mmHg (25-50)
[2018-04-09] MEDS ORDERED: *HR* LORazepam 2 MG/ML VIAL ONE ×2 (18:20→18:29)
[2018-04-09] MEDS: *HR* LORazepam 2 MG/ML VIAL IVP PRN ×3 (19:52→22:56)
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
[2018-04-10 03:46] LABS: Basophils % 0.1 %; Eosinophils % 0.2 %; Hemoglobin 12.5 g/dL (12.9-16.9); Immature Granulocytes % 0.3 % (0-4); Lymphocytes # 0.8 K/mcL (0.6-4.6); Lymphocytes % 5.2 %; Mean Corpuscular HGB Conc 33.8 g/dL (31.6-35.5); Mean Corpuscular Hemoglobin 28.5 pg (28.0-33.3); Mean Corpuscular Volume 84.5 fL (83.0-100.0); Mean Platelet Volume 9.3 fL (9.4-12.4); Monocytes % 6.4 %; Neutrophils # 14.2 K/mcL (1.6-8.9); Platelet Count 309 K/mcL (140-400); Red Blood Count 4.38 M/mcL (4.19-5.50); Red Cell Distribution Width 12.5 % (11.5-14.5); Segmented Neutrophils % 87.8 %
[2018-04-10 04:09] LABS: BUN/Creatinine Ratio 20 (6-26); Blood Urea Nitrogen 20 mg/dL (6-20); Carbon Dioxide 25 mEq/L (23-29); Chloride 102 mEq/L (98-107); Glucose 139 mg/dL (70-105); Osmolality,Calculated 291 (280-300); Potassium 3.8 mEq/L (3.5-5.1); Sodium 138 mEq/L (136-145); eGFR For Non-African Americans > 60 (> 60)
[2018-04-10] MEDS: 0.9 % Sodium Chloride 1,000 ML IVC SCH ×2 (06:52→13:11)
[2018-04-10] MEDS: *HR* LORazepam 2 MG/ML VIAL IVP SCH ×3 (11:36→18:00)
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
[2018-04-11] MEDS: *HR* LORazepam 2 MG/ML VIAL IVP PRN ×2 (01:38→18:51)
[2018-04-11] MEDS: 0.9 % Sodium Chloride 1,000 ML IVC SCH (02:00)
[2018-04-11 05:35] LABS: Basophils % 0.4 %; Eosinophils # 0.1 K/mcL (0.0-0.6); Eosinophils % 0.5 %; Hematocrit 36.4 % (37.5-50.1); Immature Granulocytes % 0.8 % (0-4); Lymphocytes # 1.7 K/mcL (0.6-4.6); Lymphocytes % 14.6 %; Mean Corpuscular Hemoglobin 28.4 pg (28.0-33.3); Mean Corpuscular Volume 86.3 fL (83.0-100.0); Mean Platelet Volume 9.9 fL (9.4-12.4); Monocytes % 8.6 %; Neutrophils # 8.6 K/mcL (1.6-8.9); Nucleated Red Blood Cells 0.2 /100 WBC (0); Platelet Count 286 K/mcL (140-400); Red Blood Count 4.22 M/mcL (4.19-5.50); Red Cell Distribution Width 12.8 % (11.5-14.5); Segmented Neutrophils % 75.1 %
[2018-04-11 05:41] LABS: BUN/Creatinine Ratio 16 (6-26); Blood Urea Nitrogen 14 mg/dL (6-20); Calcium 8.6 mg/dL (8.6-10.3); Carbon Dioxide 22 mEq/L (23-29); Chloride 108 mEq/L (98-107); Glucose 115 mg/dL (70-105); Osmolality,Calculated 289 (280-300); Potassium 3.9 mEq/L (3.5-5.1); Sodium 139 mEq/L (136-145); eGFR For Non-African Americans > 60 (> 60)
[2018-04-11 13:55] LABS: Creatine Kinase 2282 Units/L (30-223)
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
[2018-04-11] MEDS: Ringers Solution, Lactated 1,000 ML IVC SCH (17:00)
[2018-04-11] MEDS ORDERED: *HR* Labetalol 20 MG/4 ML SYRINGE IVP PRN (17:43)
[2018-04-11] MEDS ORDERED: *HR* Labetalol 20 MG/4 ML SYRINGE IVP ONE (17:43)
[2018-04-12] MEDS: Ringers Solution, Lactated 1,000 ML IVC SCH (01:40)
[2018-04-12 05:58] LABS: Basophils # 0.1 K/mcL (0.0-0.2); Basophils % 0.5 %; Eosinophils # 0.2 K/mcL (0.0-0.6); Hematocrit 35.3 % (37.5-50.1); Hemoglobin 11.8 g/dL (12.9-16.9); Immature Granulocytes % 0.6 % (0-4); Lymphocytes % 18.8 %; Mean Corpuscular HGB Conc 33.4 g/dL (31.6-35.5); Mean Corpuscular Hemoglobin 28.3 pg (28.0-33.3); Mean Corpuscular Volume 84.7 fL (83.0-100.0); Mean Platelet Volume 10.1 fL (9.4-12.4); Monocytes % 9.5 %; Platelet Count 237 K/mcL (140-400); Red Blood Count 4.17 M/mcL (4.19-5.50); Segmented Neutrophils % 68.6 %
[2018-04-12 06:20] LABS: BUN/Creatinine Ratio 12 (6-26); Blood Urea Nitrogen 12 mg/dL (6-20); Calcium 8.8 mg/dL (8.6-10.3); Carbon Dioxide 23 mEq/L (23-29); Chloride 108 mEq/L (98-107); Creatine Kinase 1375 Units/L (30-223); Glucose 142 mg/dL (70-105); Magnesium 1.9 mg/dL (1.6-2.6); Osmolality,Calculated 290 (280-300); Potassium 3.6 mEq/L (3.5-5.1); Sodium 139 mEq/L (136-145); eGFR For Non-African Americans > 60 (> 60)
[2018-04-12 06:45] LABS: Neutrophils # 7.1 K/mcL (1.6-8.9)
[2018-04-12 07:40] VITALS: BP 164/84
[2018-04-12] MEDS ORDERED: amLODIPine 5 MG TABLET PO SCH (09:45)
--- NOTE | 2018-04-12 09:50 | Internal Med Progress Note ---
Hospitalist Progress Note - Encounter Date of Encounter: 04/12/18 Time of Encounter: 09:49 - Subjective Interval History: No acute events, no complaints. Patient ready to go home. - Exam Vitals: Temp Pulse Resp BP Pulse Ox 98.5 F 89 18 164/84 97 04/12/18 07:57 04/12/18 07:57 04/12/18 07:57 04/12/18 07:57 04/12/18 07:57 Exam: . - Assessment and Plan (1) Adverse reaction to drug Current Visit: Yes Status: Acute Assessment and Plan: Please see discharge summary for course. CPK improved today HTN: persists, will add Norvasc in addition to his home BP meds. Follow-up with PCP in 3 days. (2) Agitation Current Visit: Yes Status: Acute (3) HTN (hypertension) Current Visit: Yes Status: Chronic (4) HLD (hyperlipidemia) Current Visit: Yes Status: Chronic - Time Spent with Patient Total time spent is greater than 50% in coordination of care (as documented) at patient's floor/unit and/or counseling patient: Internal Medicine: Result - Labs CBC & Chem 7: 04/12/18 05:42 04/12/18 05:42 Labs: Short CBC 04/12/18 Range/Units 05:42 WBC 10.4 (4.3-11.1) K/mcL Hgb 11.8 L (12.9-16.9) g/dL Hct 35.3 L (37.5-50.1) % Plt Count 237 (140-400) K/mcL Neutrophils # 7.1 (1.6-8.9) K/mcL BMP 04/11/18 04/12/18 04:53 05:42 Sodium 139 139 Potassium 3.9 3.6 Chloride 108 H 108 H Carbon Dioxide 22 L 23 BUN 14 12 Creatinine 0.90 1.03 Glucose 115 H 142 H Calcium 8.6 8.8 Consult Discharge Plan - Plan Referrals: Landry Velasco [Primary Care Provider] - 04/19/18 1:00 pm (Appointment is actually 1:15 PM but they want you there at 1300) Prescriptions: amLODIPine [Norvasc] 5 mg PO DAILY #30 tablet (1) Adverse reaction to drug Qualifiers: Encounter type: initial encounter Qualified Code(s): T50.905A - Adverse effect of unspecified drugs, medicaments and biological substances, initial encounter (3) HTN (hypertension) Qualifiers: Hypertension type: essential hypertension Qualified Code(s): I10 - Essential (primary) hypertension (4) HLD (hyperlipidemia) Qualifiers: Hyperlipidemia type: unspecified Qualified Code(s): E78.5 - Hyperlipidemia, unspecified
--- NOTE | 2018-04-13 09:18 | Electrocardiograph Report ---
[address] [address] Test Date: 2018-04-09 Pat Name: Alen Haynes Department: EXAM9 Room: 2N07 Gender: M Etl Architect: : [id number] Requested By: Artur Adhikari Order Number: [id number] Reading MD: Izzy Woodall Measurements Intervals [place] Rate: 135 P: 72 IA: 134 QRS: 23 QRSD: 125 T: -28 QT: 367 QTc: 551 Interpretive Statements Sinus tachycardia Atrial premature complexes Left bundle branch block Borderline ST depression lateral leads Electronically Signed On 04-13-2018 9:16:56 EDT by Izzy Woodall
== END 2018-04-12 11:18 | disposition home or self-care (01) | DRG 884 ==
LOC: SUATTDRO → EMEROOARM 11:14 → SUATTDRO 17:05 → 2NNU 17:05
PROVIDERS: ADMIT Internal Medicine; ATTEND Internal Medicine